=== PATIENT | female | born 1965 | race Caucasian/White ===

== ENCOUNTER 2020-05-30 17:29 | Emergency (ER) | payer BC ==
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
[2020-05-30 19:05] VITALS: BP 143/89; PULSE 86; O2SAT 97
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
== END 2020-05-30 19:07 | disposition home or self-care (01) ==
LOC: ED 17:29
DX: S16.1XXA Strain of muscle, fascia and tendon at neck level, initial encounter (principal); S29.011A Strain of muscle and tendon of front wall of thorax, initial encounter; V89.2XXA Person injured in unspecified motor-vehicle accident, traffic, initial encounter; M54.2 Cervicalgia; R07.9 Chest pain, unspecified
CPT/HCPCS: 70450; 71250; 72125; 99284

== ENCOUNTER 2023-09-05 21:37 | Emergency (ER) | payer BC, OTHER ==
[2023-09-05 21:45] VITALS: TEMP 96.4
--- NOTE | 2023-09-05 22:10 | ERPHSYRPT ---
- History of Present Illness Time Seen by Provider: 09/05/23 22:06 Source: patient Exam Limitations: no limitations Patient Subjective Stated Complaint: scratched by cat to rt arm, cat moved and I have swelling to rt wrist. Triage Nursing Assessment: pt ambulated into ER room 9 without difficulty, spouse at bedside. Pt c/o swelling to rt wrist/forearm which occured tonight around 2114 from her cats. Pt has several small scratches to rt forearm from her cats. No redness or warmth noted to the area. Pt is able to move her rt wrist/arm/hand without diff. Physician History: The patient presented with a rapidly developing swelling in their forearm, which occurred approximately 45 minutes prior to the consultation. The swelling was associated with significant bleeding, which the patient attempted to control. The patient reported that the swelling and bleeding were due to a puncture wound inflicted by their cat. The patient noted two specific areas of injury on their forearm, and reported pain upon movement of the affected arm. The patient's medical history includes an allergy to penicillin. They reported that their tetanus shot was not up to date. The patient also mentioned that they were not wearing their glasses at the time of the incident, which may have contributed to the severity of the injury. The patient's symptoms and the nature of the injury suggest a hematoma formation due to a punctured vein. Occurred: just prior to arrival Method of Injury: other (cat scratch) Quality: other (swelling) Severity of Pain-Max: mild Severity of Pain-Current: mild Extremities Pain Location: forearm: right Modifying Factors: Improves With: rest. Worsens With: movement Associated Symptoms: none Allergies/Adverse Reactions: Penicillins Allergy (Intermediate, Verified 09/05/23 21:51) Rash Home Medications: Fenofibrate [Fenoglide] 120 mg PO DAILY 05/30/20 [History] Metformin HCl 500 mg [Glucophage 500 MG] 1,000 mg PO BID 05/30/20 [Histor y] Rosuvastatin Calcium [Crestor] 20 mg PO DAILY 05/30/20 [History] Aspirin EC 81 mg [Ecotrin 81 mg] 1 tab PO DAILY 09/05/23 [History] Citalopram Hydrobromide 20 mg* [ceLEXa 20 MG] 1 tab PO DAILY 09/05/23 [History] Dapagliflozin Propanediol [Farxiga] 1 tab PO DAILY 09/05/23 [History] Levothyroxine Sodium 50 Mcg [Synthroid 50 Mcg] 1 tab PO DAILY 09/05/23 [History] Hx Tetanus, Diphtheria Vaccination/Date Given: No Hx Influenza Vaccination/Date Given: Yes Hx Pneumococcal Vaccination/Date Given: No Travel Risk - International Travel Have you traveled outside of the country in past 3 weeks: No - Emerging Infectious Disease Are you exhibiting symptoms associated with any current EIDs: Yes Symptoms: Vomitting - Review of Systems All Other Systems: Reviewed and Negative - Past Medical History Pertinent Past Medical History: Yes Neurological History: No Pertinent History ENT History: Cataracts Cardiac History: High Cholesterol, Hypertension Respiratory History: Asthma Endocrine Medical History: Diabetes Type II Musculoskeletal History: No Pertinent History GI Medical History: No Pertinent History History: No Pertinent History Psycho-Social History: Anxiety Female Reproductive Disorders: No Pertinent History - Past Surgical History Past Surgical History: Yes Female Surgical History: Section Other Surgical History: left arm. c section - Social History Smoking Status: Former smoker Exposure to second hand smoke: No Drug Use: none Patient Lives Alone: No - Social Determinants of Health Will the patient participate in the screening: Yes Do you worry about a steady place to live?: No Do you have any problems with any of the following?: No known problems In the past 12 months,have you had to go without utilities?: No Transportation Issues: No Has anyone in your support network made you feel unsafe?: No Have you or anyone in your house had to go without enough: No - Nursing Vital Signs Nursing Vital Signs: Initial Vital Signs Temperature 96.4 F 09/05/23 21:43 Pulse Rate 67 09/05/23 21:43 Respiratory Rate 18 09/05/23 21:43 Blood Pressure 140/88 09/05/23 21:43 O2 Sat by Pulse Oximetry 97 09/05/23 21:43 Pain Scale Pain Intensity 0 - Physical Exam Elbow/Forearm Exam: normal ROM, ecchymosis, pain, soft tissue tenderness, swelling Wrist Exam: normal ROM, pain, soft tissue tenderness, swelling Neuro/Tendon Exam: normal sensation, normal motor functions, normal tendon functions, responds to pain, No sensory deficit Skin Exam: other (multiple scratches and punture wounds without erythema) SpO2: 97 - Course Nursing assessment & vital signs reviewed: Yes Ordered Tests: Medication Summary Discontinued Medications Generic Name Dose Route Start Last Admin Trade Name Cassidy PRN Reason Stop Dose Admin Diphtheria/Tetanus/Acell Pertussis 0.5 ml 09/05/23 22:16 09/05/23 22:27 Tdap --Diph,Pertuss(Acell),Tet Vac/Pf 0.5 Ml Vial IM 09/05/23 22:17 0.5 ml .ONCE ONE Administration Diphtheria/Tetanus/Acell Pertussis Confirm 09/05/23 22:24 Tdap --Diph,Pertuss(Acell),Tet Vac/Pf 0.5 Ml Vial Administered 09/05/23 22:25 Dose 0.5 ml IM .STK-MED ONE Doxycycline Hyclate 100 mg 09/05/23 22:12 09/05/23 22:26 Doxycycline Hyclate 100 Mg Tablet PO 09/05/23 22:13 100 mg STAT ONE Administration Doxycycline Hyclate Confirm 09/05/23 22:23 Doxycycline Hyclate 100 Mg Tablet Administered 09/05/23 22:24 Dose 100 mg .ROUTE .STK-MED ONE - Progress Progress Note: Will empirically tx with Doxycycline. Discussed signs and sxs of UE compartment syndrome and when to return to ER. Will place in shayy bandage for compression to help reduce size of hematoma. Counseled pt/family regarding: diagnosis, need for follow-up Medical Desision Making - Diagnostic Testing Diagnostic test were ordered, analyzed, and reviewed by me: No - Risk of complications The pt has a mod risk of morbidity or mortality based on: Need for prescription drug management - Departure Departure Disposition: Home Clinical Impression: Puncture wound, Cat scratch of forearm, Hematoma of right forearm Condition: Good Critical Care Time: No Referrals: JOSE E FULTON [Primary Care Provider] - Follow up/PCP as directed Instructions: Cat Scratch Disease (DC) Prescriptions: Doxycycline Hyclate 100 mg [Vibramycin 100 MG] 100 mg PO BID 7 Days #14 tab
[2023-09-05] MEDS ORDERED: Vibramycin 100 MG ONE (22:23)
[2023-09-05] MEDS ORDERED: Adacel Vial IM ONE (22:24)
[2023-09-05] MEDS: Vibramycin 100 MG PO ONE (22:26)
[2023-09-05] MEDS: Adacel Vial IM ONE (22:27)
[2023-09-05 22:34] VITALS: BP 128/74; PULSE 73; RESP 16
[2023-09-07 01:14] VITALS: O2SAT 97
== END 2023-09-05 22:40 | disposition home or self-care (01) ==
LOC: ED 21:37
DX: S50.811A Abrasion of right forearm, initial encounter (principal); S51.831A Puncture wound without foreign body of right forearm, initial encounter; W55.03XA Scratched by cat, initial encounter; E78.5 Hyperlipidemia, unspecified; I10 Essential (primary) hypertension; E11.9 Type 2 diabetes mellitus without complications; Z79.84 Long term (current) use of oral hypoglycemic drugs; Z79.899 Other long term (current) drug therapy; Z23 Encounter for immunization
CPT/HCPCS: 90471; 90715; 99283; A9270-GY